=== PATIENT | male | born 1985 | race African-American/Black ===

== ENCOUNTER 2016-11-06 05:56 | Emergency (ER) | payer OTHER ==
[~2016-11-06] VITALS: Ht 170.2 cm; Wt 77.1 kg
[2016-11-06] MEDS ORDERED: ZYRT10CA PO (06:03)
[2016-11-06 10:39] VITALS: BP 131/80
== END 2016-11-06 10:49 | disposition home or self-care (01) ==
LOC: M ED 07:51
DX: H53.8 Other visual disturbances (principal)